=== PATIENT | female | born 1960 | race Hispanic/Latino ===

== ENCOUNTER 2017-01-03 11:36 | Outpatient (CLI) | payer MEDICAID ==
--- NOTE | 2017-01-04 08:43 | Mammography Report ---
Bilateral mammogram: Compared to 12/08/15 and 12/02/14. CAD study utilized. Findings: Predominance of adipose tissue bilaterally. Benign density right and left breast. Benign calcifications. No significant interval change. Normal axilla. Impression: Benign findings. Annual followup recommended. BI-RADS CATEGORY: 2 = Benign ACR BI-RADS MAMMOGRAPHIC CODES: 0 = Needs additional imaging evaluation; 1 = Negative; 2 = Benign; 3 = Probably benign; 4 = Suspicious; 5 = Malignant; 6 = Known biopsy-proven malignancy COMMENT: 1. Dense breast tissue, i.e., adenosis, fibrocystic changes, etc., may obscure an underlying neoplasm. 2. Approximately 10% of cancers are not detected with mammography. 3. A negative mammography report should not delay biopsy if a clinically suspicious mass is present. COMMENT: Patient follow-up letters are generated in [facility].
== END 2017-01-03 11:37 | disposition home or self-care (01) ==
LOC: MAMMO 11:36
PROVIDERS: ATTEND Internal Medicine
DX: Z12.31 Encounter for screening mammogram for malignant neoplasm of breast (principal)
CPT/HCPCS: 77067; G0202

== ENCOUNTER 2018-06-18 07:27 | Day surgery (SDC) | payer MEDICAID ==
[~2018-06-18 07:27] MED LIST: ceFAZolin 2 GM in NACL 0.9% 100 ML IV ONE
[2018-06-18] MEDS ORDERED: LACTATED RINGERS 1,000 ML ONE (08:23)
[2018-06-18] MEDS ORDERED: DIPRIVAN 10 MG/ML IV ONE ×2 (08:23→10:23)
[2018-06-18] MEDS ORDERED: SUBLIMAZE ONE (08:23)
[2018-06-18] MEDS ORDERED: ANCEF/STERILE WATER 2 GM/20 ML 2 GM/20 ML SYRINGE IV NR (08:30)
[2018-06-18] MEDS ORDERED: LACTATED RINGERS 1,000 ML IV SCH (08:30)
[2018-06-18] MEDS ORDERED: NORCO 5/325 PO PRN (08:33)
[2018-06-18] MEDS ORDERED: SUBLIMAZE IV PRN (08:33)
--- NOTE | 2018-06-18 08:33 | Anesthesia Day of Surgery ---
Anesthesia Day of Surgery - Day of Surgery Patient Examined: Yes Patient H&P Reviewed: Yes Patient is NPO: Yes
--- NOTE | 2018-06-18 08:33 | Anesthesia Consultation ---
Anesthesia Consult and Med Hx Date of service: 06/18/18 - Airway Anesthetic Teeth Evaluation: Good ROM Head & Neck: Adequate Mental/Hyoid Distance: Inadequate Mallampati Class: Class III Intubation Access Assessment: Possibly Difficult - Pulmonary Exam CTA: Yes - Cardiac Exam Cardiac Exam: RRR - Pre-Operative Health Status ASA Pre-Surgery Classification: ASA3 Proposed Anesthetic Plan: MAC - Pulmonary Hx Smoking: No Hx Respiratory Symptoms: No - Cardiovascular System Hx Hypertension: Yes (last does antihypertensives 06/17) Hx Heart Attack/AMI: No Hx Percutaneous Transluminal Coronary Angioplasty (PTCA): No Hx Cardia Arrhythmia: No - Central Nervous System CVA: No Hx Back Pain: Yes (HERNIATED DISC) Hx Psychiatric Problems: Yes (schizophrenia) - Gastrointestinal Hx Gastroesophageal Reflux Disease: No - Endocrine Hx Renal Disease: No Hx Liver Disease: No Hx Non-Insulin Dependent Diabetes: Yes (diet controlled) Hx Thyroid Disease: No - Other Systems Hx Obesity: Yes - Additional Comments Anesthesia Medical History Comments: No hx anesthetic complications.
[2018-06-18] MEDS ORDERED: NEO SYNEPHRINE/NS Syringe(OR USE) IV ONE (09:00)
[2018-06-18] MEDS ORDERED: MARCAINE 0.25% INFILTRATI ONE ×2 (09:42→10:27)
[2018-06-18] MEDS ORDERED: XYLOCAINE 1% 20 mL ONE (09:42)
[2018-06-18] MEDS ORDERED: VERSED ONE (09:45)
[2018-06-18] MEDS ORDERED: XYLOCAINE 1% 20 mL INFILTRATI ONE (10:26)
--- NOTE | 2018-06-18 10:45 | Short Stay Summary ---
Short Stay Documentation Date of service: 06/18/18 - History Principal diagnosis: left shoulder mass H&P: obtained from office - Allergies and Medications Current Medications: Allergies No Known Allergies Allergy (Verified 06/14/18 14:34) Home Medications Medication Instructions Recorded Confirmed Last Taken Type Citalopram Hydrobromide [celeXA] 40 mg PO DAILY 11/19/13 06/18/18 06/17/18 09:00 History cloZAPine 200 mg PO QPM 09/18/17 06/18/18 06/17/18 18:00 History Amlodipine Besylate/Benazepril 1 each PO QDAY #30 capsule 09/22/17 06/18/18 06/17/18 09:00 Rx [Lotrel 10-20 mg] Atenolol [Tenormin] 100 mg PO DAILY #30 tab 09/22/17 06/18/18 06/17/18 09:00 Rx Spironolactone [Aldactone] 25 mg PO QDAY #30 tablet 09/22/17 06/18/18 06/17/18 09:00 Rx Active Medications Acetaminophen/Hydrocodone Bitart ([place] 5/325) 2 each PO ONCE PRN PRN Reason: Pain, Moderate (4-6) Stop: 06/18/18 16:00 Fentanyl (Sublimaze) 50 mcg IV Q5MIN PRN PRN Reason: Pain , Severe (7-10) Stop: 06/18/18 20:00 Cefazolin Sodium (Ancef/Sterile Water 2 Gm/20 Ml) 2 gm in 20 mls @ 80 mls/hr IV PREOP NR Stop: 06/18/18 11:00 Lactated Ringer's (Lactated Ringers) 1,000 mls @ 75 mls/hr IV DIRECT KYLIE Last Admin: 06/18/18 08:30 Dose: 75 mls/hr Documented by: - Brief post op/procedure progress note Date of procedure: 06/18/18 Pre-op diagnosis: left shoulder mass Post-op diagnosis: same Procedure: excision of left shoulder mass Anesthesia: MAC, local Findings: 4 cm exophytic mass of left shoulder Surgeon: NERIS MA Estimated blood loss: minimal Pathology: list (mass of left shoulder) Specimen disposition: to lab Condition: stable - Hospital course Hospital course: Pt observed in PACU and discharged to home in stable condition when criteria was met - Disposition Condition at discharge: Good Disposition: DC-01 TO HOME OR SELFCARE Short Stay Discharge Plan Activity: no restrictions Diet: regular Wound: per your surgeon's advice Additional Instructions: SEE PRINTED DISCHARGE INSTRUCTIONS Follow up with: KYUNG WEINSTEIN MD [Primary Care Provider] - 7 Days NERIS MA DO [Staff Physician] - 14 Days Prescriptions: HYDROcodone/APAP 5-325 [[place] 5-325 mg TAB] 1 each PO Q4H PRN #20 tablet PRN Reason: Pain, Moderate (4-6)
[2018-06-18 11:18] VITALS: BP 129/67
--- NOTE | 2018-06-18 11:56 | Post Anesthesia Evaluation ---
- Post Anesthesia Evaluation Patient Participated: Yes Airway Patent: Yes Stable Respiratory Function: Yes Nausea/Vomiting: No Temp > 96.8F: Yes Pain Manageable: Yes Adequeate Hydration: Yes Anesthesia Complications: No
--- NOTE | 2018-06-18 14:30 | Operative Report ---
PREOPERATIVE DIAGNOSIS: Left shoulder mass. POSTOPERATIVE DIAGNOSIS: Left shoulder mass. PROCEDURE: Excision left shoulder mass. ANESTHESIA: MAC local. FINDINGS: A 4 cm exophytic mass of the left shoulder. SURGEON: Danuta Valencia DO. ESTIMATED BLOOD LOSS: Minimal. PATHOLOGY: Mass of left shoulder. DISPOSITION: Specimen to lab. CONDITION AND DISPOSITION: The patient is stable to PACU. HISTORY OF PRESENT ILLNESS: The patient is a 58-year-old female who presented to the office for evaluation of a left shoulder mass, which had been there for more than 10 years. She had stated that it had been slow growing; however, she did want it excised. All risks, benefits, and alternatives of surgery were discussed with the patient and questions answered. Consent was obtained. PROCEDURE IN DETAIL: The patient was identified in the preoperative area and taken back to the operating room and placed on the operating room table in right lateral decubitus position with all bony prominences padded. After anesthesia was induced, the left shoulder was prepped and draped in the usual sterile fashion. Timeout was performed. Local anesthetic was infiltrated into the skin and subcutaneous tissue at the intended incision site. An elliptical marking was done and an incision was made using a 15 blade. The skin and subcutaneous tissue was dissected using Bovie electrocautery and the mass and underlying skin and subcutaneous tissue excised using electrocautery. The specimen was passed off the table. The wound was checked for hemostasis, which was carefully achieved using electrocautery. Due to the wide nature of the defect, the skin was undermined in order to approximate the wound without tension. The deep dermal layer was approximated using 2-0 Vicryl interrupted sutures. The skin was approximated using 3-0 nylon vertical mattress sutures. The skin was cleansed and covered with a 4 x 4 gauze and Medipore tape. At the end of the case, all sponge, instrument, sharp counts were correct x 2. The patient was awoken from anesthesia and taken to PACU in stable condition. JOB# [id number]/ALEXANDREA
== END 2018-06-18 11:40 | disposition home or self-care (01) ==
LOC: OR 07:27
PROVIDERS: ATTEND Surgery
DX: C44.619 Basal cell carcinoma of skin of left upper limb, including shoulder (principal); D72.829 Elevated white blood cell count, unspecified; I10 Essential (primary) hypertension; E11.51 Type 2 diabetes mellitus with diabetic peripheral angiopathy without gangrene; M19.90 Unspecified osteoarthritis, unspecified site; F20.9 Schizophrenia, unspecified; E66.9 Obesity, unspecified; Z68.38 Body mass index [BMI] 38.0-38.9, adult; Z91.81 History of falling; Z79.899 Other long term (current) drug therapy; Z98.890 Other specified postprocedural states
CPT/HCPCS: 11604; 82962; 88307; J0690; J2250; J2370; J2704; J3010; J7120